=== PATIENT | male | born 1975 | race Caucasian/White ===

== ENCOUNTER 2016-08-17 15:59 | Emergency (ER) | payer BC ==
[2016-08-17 16:20] VITALS: RESP 18
[2016-08-17] MEDS ORDERED: ACETAMINOPHEN TAB 500 MG TAB PO STA (18:14)
[2016-08-17] MEDS ORDERED: ONDANSETRON 4 MG/2 ML VIAL IVP STA (18:14)
[2016-08-17] MEDS ORDERED: SODIUM CHLORIDE 0.9% 1,000 ML IV STA (18:14)
--- NOTE | 2016-08-17 18:14 | ED ---
General Adult HPI - General Chief complaint: Nausea/Vomiting/Diarrhea Stated complaint: Vomiting Time Seen by Provider: 08/17/16 18:08 Source: patient, RN notes reviewed Mode of arrival: ambulatory Limitations: no limitations - History of Present Illness Initial comments: 40-year-old male presents emergency Department chief complaint of body aches fever and vomiting. Patient states he's been sick for the last 2 days. Patient states he feels nauseous and he has some phlegm and stomach acid production after he coughs. Patient states he does have low-grade fever. Patient states he had a little bit of achiness in the belly does not hurt to touch earlier today which concerned him. He denies any changes in bowel or bladder habits. Patient states she was concerned due to the symptoms without that he should be evaluated. Patient states that there is no other symptoms at this time. Patient denies any significant health history besides stomach ulcers. Patient denies any recent shortness of breath, chest pain, numbness or tingling, dysuria or hematuria, constipation or diarrhea, headaches or visual changes, or any other current symptoms. - Related Data Home Medications Medication Instructions Recorded Confirmed Acetaminophen-Codeine 300-30mg 1 tab PO BID PRN 08/17/16 08/17/16 [Tylenol #3] Atorvastatin [Lipitor] 40 mg PO DAILY 08/17/16 08/17/16 Fluticasone Nasal [place] [Flonase 1 spray EA NOSTRIL DAILY PRN 08/17/16 08/17/16 Nasal [place]] Icy Hot Rub 1 applic TOPICAL DAILY PRN 08/17/16 08/17/16 Naproxen 500 mg PO Q12HR 08/17/16 08/17/16 Omeprazole 20 mg PO DAILY 08/17/16 08/17/16 Sertraline [Zoloft] 50 mg PO DAILY 08/17/16 08/17/16 Previous Rx's Medication Instructions Recorded Famotidine [Pepcid] 20 mg PO BID #10 tablet 08/17/16 Ondansetron Odt [Zofran ODT] 4 mg PO Q8HR PRN #20 tab 08/17/16 Allergies Allergy/AdvReac Type Severity Reaction Status Date / Time No Known Allergies Allergy Verified 08/17/16 18:45 Review of Systems ROS Statement: Those systems with pertinent positive or pertinent negative responses have been documented in the HPI. ROS Other: All systems not noted in ROS Statement are negative. Past Medical History Additional Past Medical History / Comment(s): gastric ulcers History of Any Multi-Drug Resistant Organisms: None Reported Past Surgical History: Back Surgery Past Psychological History: Anxiety, Depression Smoking Status: Former smoker Past Alcohol Use History: None Reported Past Drug Use History: Marijuana General Exam - General Exam Comments Initial Comments: General: The patient is awake and alert, in no distress, and does not appear acutely ill. Eye: Pupils are equal, round and reactive to light, extra-ocular movements are intact; there is normal conjunctiva bilaterally. No signs of icterus. Ears, nose, mouth and throat: There are moist mucous membranes. Neck: The neck is supple, there is no tenderness. Cardiovascular: There is a regular rate and rhythm. No murmur, rub or gallop is appreciated. Respiratory: Lungs are clear to auscultation, respirations are non-labored, breath sounds are equal. No wheezes, stridor, rales, or rhonchi. Gastrointestinal: Soft, non-distended, non-tender abdomen without masses or organomegaly noted. There is no rebound or guarding present. No CVA tenderness. Bowel sounds are unremarkable. Back: There is no tenderness to palpation in the midline. There is no obvious deformity. No rashes noted. Musculoskeletal: Normal ROM, no tenderness, There is no pedal edema. There is no calf tenderness or swelling. Sensation intact. Pulses equal bilaterally 2+. Neurological: CN II-XII intact, There are no obvious motor or sensory deficits. Coordination appears grossly intact. Speech is normal. Skin: Skin is warm and dry and no rashes or lesions are noted. Psychiatric: Cooperative, appropriate mood & affect, normal judgment. Limitations: no limitations Course Vital Signs 08/17/16 08/17/16 16:17 18:10 Temperature 99.2 F 99.2 F Pulse Rate 82 98 Respiratory 18 18 Rate Blood Pressure 151/91 159/78 O2 Sat by Pulse 93 L 95 Oximetry Medical Decision Making - Medical Decision Making 40-year-old male presents for fever and bodyaches. Patient does have nausea with this as well. Abdomen is soft and nontender. Patient at this time is positive for influenza A. Laboratory is reviewed and otherwise unremarkable. This time we discussed Motrin Tylenol for fever control. We discussed return parameters and follow-up. He is out of the window for treatment. Did discuss we will give him Zofran for his nausea. We discussed to use Motrin Tylenol for fever control. The patient stated that he understood and all questions have been answered. Patient will be discharged. Patient is feeling better in the room. - Lab Data Result diagrams: 08/17/16 18:25 08/17/16 18:25 Lab Results 08/17/16 08/17/16 08/17/16 Range/Units 18:25 18:25 18:25 WBC 6.3 (3.8-10.6) k/uL RBC 4.95 (4.30-5.90) m/uL Hgb 14.7 (13.0-17.5) gm/dL Hct 43.6 (39.0-53.0) % MCV 88.0 (80.0-100.0) fL MCH 29.7 (25.0-35.0) pg MCHC 33.7 (31.0-37.0) g/dL RDW 13.3 (11.5-15.5) % Plt Count 263 (150-450) k/uL Neutrophils % 69 % Lymphocytes % 15 % Monocytes % 13 % Eosinophils % 0 % Basophils % 1 % Neutrophils # 4.4 (1.3-7.7) k/uL Lymphocytes # 0.9 L (1.0-4.8) k/uL Monocytes # 0.8 (0-1.0) k/uL Eosinophils # 0.0 (0-0.7) k/uL Basophils # 0.0 (0-0.2) k/uL Sodium 140 (137-145) mmol/L Potassium 4.0 (3.5-5.1) mmol/L Chloride 99 (98-107) mmol/L Carbon Dioxide 26 (22-30) mmol/L Anion Gap 15 mmol/L BUN 21 H (9-20) mg/dL Creatinine 0.83 (0.66-1.25) mg/dL Est GFR (MDRD) Af Amer >60 (>60 ml/min/1.73 sqM) Est GFR (MDRD) Non-Af >60 (>60 ml/min/1.73 sqM) Glucose 101 H (74-99) mg/dL Calcium 9.1 (8.4-10.2) mg/dL Total Bilirubin 1.4 H (0.2-1.3) mg/dL AST 46 (17-59) U/L ALT 61 (21-72) U/L Alkaline Phosphatase 64 (38-126) U/L Total Protein 8.7 H (6.3-8.2) g/dL Albumin 4.8 (3.5-5.0) g/dL Amylase <30 L (30-110) U/L Lipase 39 (23-300) U/L Urine Color Urine Appearance (Clear) Urine pH (5.0-8.0) Ur Specific [place] (1.001-1.035) Urine Protein (Negative) Urine Glucose (UA) (Negative) Urine Ketones (Negative) Urine Blood (Negative) Urine Nitrate (Negative) Urine Bilirubin (Negative) Urine Urobilinogen (<2.0) mg/dL Ur Leukocyte Esterase (Negative) Influenza Type A RNA Detected A (Not Detectd) Influenza Type B (PCR) Not Detected (Not Detectd) 08/17/16 Range/Units 18:25 WBC (3.8-10.6) k/uL RBC (4.30-5.90) m/uL Hgb (13.0-17.5) gm/dL Hct (39.0-53.0) % MCV (80.0-100.0) fL MCH (25.0-35.0) pg MCHC (31.0-37.0) g/dL RDW (11.5-15.5) % Plt Count (150-450) k/uL Neutrophils % % Lymphocytes % % Monocytes % % Eosinophils % % Basophils % % Neutrophils # (1.3-7.7) k/uL Lymphocytes # (1.0-4.8) k/uL Monocytes # (0-1.0) k/uL Eosinophils # (0-0.7) k/uL Basophils # (0-0.2) k/uL Sodium (137-145) mmol/L Potassium (3.5-5.1) mmol/L Chloride (98-107) mmol/L Carbon Dioxide (22-30) mmol/L Anion Gap mmol/L BUN (9-20) mg/dL Creatinine (0.66-1.25) mg/dL Est GFR (MDRD) Af Amer (>60 ml/min/1.73 sqM) Est GFR (MDRD) Non-Af (>60 ml/min/1.73 sqM) Glucose (74-99) mg/dL Calcium (8.4-10.2) mg/dL Total Bilirubin (0.2-1.3) mg/dL AST (17-59) U/L ALT (21-72) U/L Alkaline Phosphatase (38-126) U/L Total Protein (6.3-8.2) g/dL Albumin (3.5-5.0) g/dL Amylase (30-110) U/L Lipase (23-300) U/L Urine Color Yellow Urine Appearance Clear (Clear) Urine pH 5.5 (5.0-8.0) Ur Specific [place] 1.024 (1.001-1.035) Urine Protein Trace H (Negative) Urine Glucose (UA) Negative (Negative) Urine Ketones 1+ H (Negative) Urine Blood Negative (Negative) Urine Nitrate Negative (Negative) Urine Bilirubin Negative (Negative) Urine Urobilinogen 2.0 (<2.0) mg/dL Ur Leukocyte Esterase Negative (Negative) Influenza Type A RNA (Not Detectd) Influenza Type B (PCR) (Not Detectd) - Radiology Data Radiology results: report reviewed, image reviewed Disposition Clinical Impression: Influenza A Disposition: HOME SELF-CARE Condition: Stable Instructions: Influenza (ED) Additional Instructions: Please use medication as discussed. Please follow up with family doctor if symptoms have not improved over the next two days. Please return to the emergency room if your symptoms increase or worsen or for any other concerns. Prescriptions: Famotidine [Pepcid] 20 mg PO BID #10 tablet Ondansetron Odt [Zofran ODT] 4 mg PO Q8HR PRN #20 tab PRN Reason: Nausea Referrals: Maurisio Stark MD [Primary Care Provider] - 1-2 days Time of Disposition: 19:21
[2016-08-17] MEDS ORDERED: PANTOPRAZOLE 40 MG/10 ML VIAL IVP STA (18:15)
[2016-08-17 18:53] LABS: Appearance,Urine Clear (Clear); Bilirubin,Urine Negative (Negative); Glucose,Urine (UA) Negative (Negative); Ketones,Urine 1+ (Negative); Leukocyte Esterase,Urine Negative (Negative); Nitrite,Urine Negative (Negative); PH, Urine 5.5 (5.0-8.0); Protein,Urine Trace (Negative); Specific Gravity,Urine 1.024 (1.001-1.035); UA Billing (MACRO vs. MICRO) CHEM
--- NOTE | 2016-08-17 18:54 | XR ---
EXAMINATION TYPE: XR chest 2V DATE OF EXAM: 08/17/2016 6:51 PM COMPARISON: 07/20/2013 HISTORY: Cough and fever TECHNIQUE: Frontal and lateral views of the chest are obtained. FINDINGS: Heart and mediastinum are normal. Lungs are clear. Diaphragm is normal. Bony thorax and so ft tissues appear normal. IMPRESSION: Normal chest. No change.
[2016-08-17 18:55] LABS: Basophils % (A) 1 %; CH 30.1; CHCM 34.4; Eosinophils % (A) 0 %; HCT 43.6 % (39.0-53.0); HDW 2.51; HGB 14.7 gm/dL (13.0-17.5); Luc # (Auto) 0.15; Luc % (Auto) 2; Lymphocytes # (A) 0.9 k/uL (1.0-4.8); Lymphocytes % (A) 15 %; MCH 29.7 pg (25.0-35.0); MCHC 33.7 g/dL (31.0-37.0); Mean Platelet Volume 7.7; Monocytes # (A) 0.8 k/uL (0-1.0); Monocytes % (A) 13 %; Neutrophils # (A) 4.4 k/uL (1.3-7.7); Neutrophils % (A) 69 %; RBC 4.95 m/uL (4.30-5.90); RDW 13.3 % (11.5-15.5); WBC 6.3 k/uL (3.8-10.6); WBC (Perox) 6.25
[2016-08-17 19:03] LABS: ALT 61 U/L (21-72); AST 46 U/L (17-59); Alkaline Phosphatase 64 U/L (38-126); Amylase <30 U/L (30-110); Anion Gap 15 mmol/L; Blood Urea Nitrogen 21 mg/dL (9-20); Calcium 9.1 mg/dL (8.4-10.2); Carbon Dioxide 26 mmol/L (22-30); Chloride 99 mmol/L (98-107); Glucose 101 mg/dL (74-99); Non-African American GFR(MDRD) >60 (>60 ml/min/1.73 sqM); Sodium 140 mmol/L (137-145); Total Bilirubin 1.4 mg/dL (0.2-1.3); Total Protein 8.7 g/dL (6.3-8.2)
[2016-08-17 19:58] VITALS: BP 133/66; PULSE 87; TEMP 99.9
== END 2016-08-17 20:30 | disposition home or self-care (01) ==
LOC: EC 15:59
DX: J10.1 Influenza due to other identified influenza virus with other respiratory manifestations (principal); F32.9 Major depressive disorder, single episode, unspecified; F41.9 Anxiety disorder, unspecified; Z79.1 Long term (current) use of non-steroidal anti-inflammatories (NSAID); Z79.899 Other long term (current) drug therapy; Z87.11 Personal history of peptic ulcer disease; Z87.891 Personal history of nicotine dependence
CPT/HCPCS: 36415; 80053; 82150; 83690; 85025; 81003; 87040; 87502; 71020; 99284; 96374; 96375; 96361 ×2; J2405; C9113

== ENCOUNTER 2016-08-19 06:30 | Emergency (ER) | payer BC ==
[2016-08-19] MEDS ORDERED: KETOROLAC 30 MG/ML 1 ML VIAL IVP STA (07:27)
[2016-08-19] MEDS ORDERED: ONDANSETRON 4 MG/2 ML VIAL IVP STA (07:27)
[2016-08-19] MEDS ORDERED: SODIUM CHLORIDE 0.9% 1,000 ML IV STA ×2 (07:27)
[2016-08-19] MEDS ORDERED: FAMOTIDINE 20 MG/2 ML VIAL IV STA (07:27)
--- NOTE | 2016-08-19 07:31 | ED ---
Nausea/Vomiting/Diarrhea HPI - General Chief complaint: Nausea/Vomiting/Diarrhea Stated complaint: fever Time Seen by Provider: 08/19/16 07:05 Source: patient, RN notes reviewed, old records reviewed Mode of arrival: ambulatory Limitations: no limitations - History of Present Illness Initial comments: This is a 40-year-old male who presents with the onset this morning of nausea and vomiting with some slight midepigastric pain. He states that he was seen here 2 days ago and diagnosed with influenza and started medications yesterday he states it actually 3 days was was symptoms started started out was not feeling well some nausea some vomiting diarrhea the next a candidate emergency Department was hydrated also diagnosed with influenza. He states that yesterday from most part he felt well but then 4 AM this morning he started having recurrent episodes of nausea and vomiting associated with his diarrhea. He feels lightheaded he does have a headache his temperatures been is 99.4-99.8 range. MD complaint: nausea, vomiting, diarrhea, other - Related Data Home Medications Medication Instructions Recorded Confirmed Acetaminophen-Codeine 300-30mg 1 tab PO BID PRN 08/17/16 08/19/16 [Tylenol #3] Atorvastatin [Lipitor] 40 mg PO HS 08/17/16 08/19/16 Fluticasone Nasal [place] [Flonase 1 spray EA NOSTRIL DAILY PRN 08/17/16 08/19/16 Nasal [place]] Icy Hot Rub 1 applic TOPICAL DAILY PRN 08/17/16 08/19/16 Naproxen 500 mg PO Q12HR 08/17/16 08/19/16 Omeprazole 20 mg PO HS 08/17/16 08/19/16 Sertraline HCl [Sertraline HCl] 25 mg PO HS 08/19/16 08/19/16 Previous Rx's Medication Instructions Recorded Famotidine [Pepcid] 20 mg PO BID #10 tablet 08/17/16 Ondansetron Odt [Zofran ODT] 4 mg PO Q8HR PRN #20 tab 08/17/16 Dicyclomine HCl [Bentyl] 20 mg PO QID #10 tab 08/19/16 Allergies Allergy/AdvReac Type Severity Reaction Status Date / Time No Known Allergies Allergy Verified 08/19/16 06:36 Review of Systems ROS Statement: Those systems with pertinent positive or pertinent negative responses have been documented in the HPI. ROS Other: All systems not noted in ROS Statement are negative. Past Medical History Past Medical History: Hyperlipidemia Additional Past Medical History / Comment(s): gastric ulcers , back problems History of Any Multi-Drug Resistant Organisms: None Reported Past Surgical History: Back Surgery Past Psychological History: Anxiety, Depression Smoking Status: Former smoker Past Alcohol Use History: None Reported Past Drug Use History: Marijuana General Exam - General Exam Comments Initial Comments: This is a well-developed well-nourished awake alert oriented history male he is nauseated at this time Limitations: no limitations General appearance: alert, in no apparent distress Head exam: Present: atraumatic, normocephalic, normal inspection Eye exam: Present: normal appearance, PERRL, EOMI. Absent: scleral icterus, conjunctival injection, periorbital swelling ENT exam: Present: mucous membranes dry Neck exam: Present: normal inspection. Absent: tenderness, meningismus, lymphadenopathy Respiratory exam: Present: normal lung sounds bilaterally. Absent: respiratory distress, wheezes, rales, rhonchi, stridor Cardiovascular Exam: Present: regular rate, normal rhythm, normal heart sounds. Absent: systolic murmur, diastolic murmur, rubs, gallop, clicks GI/Abdominal exam: Present: soft, tenderness (Very mild epigastric discomfort palpation no guarding no rebound no masses no bruits), normal bowel sounds. Absent: distended, guarding, rebound, rigid, mass, bruit, pulsatile mass, hernia Extremities exam: Present: normal inspection, full ROM, normal capillary refill. Absent: tenderness, pedal edema, joint swelling, calf tenderness Back exam: Present: normal inspection Neurological exam: Present: alert, oriented X3, CN II-XII intact Psychiatric exam: Present: normal affect, normal mood Skin exam: Present: warm, dry, intact, normal color. Absent: rash Course Vital Signs 08/19/16 06:34 Temperature 98.5 F Pulse Rate 90 Respiratory 18 Rate Blood Pressure 148/95 O2 Sat by Pulse 99 Oximetry Medical Decision Making - Medical Decision Making Patient initially much improved I did discuss findings with them he will be discharged to continue with current medications Bentyl will be added is increase his oral fluids follow-up with his doctor return when necessary he will be given a note for being off work today - Lab Data Result diagrams: 08/19/16 08:00 08/19/16 08:00 Lab Results 08/19/16 08/19/16 Range/Units 08:00 08:00 WBC 7.4 (3.8-10.6) k/uL RBC 4.88 (4.30-5.90) m/uL Hgb 14.5 (13.0-17.5) gm/dL Hct 42.4 (39.0-53.0) % MCV 86.7 (80.0-100.0) fL MCH 29.7 (25.0-35.0) pg MCHC 34.2 (31.0-37.0) g/dL RDW 13.1 (11.5-15.5) % Plt Count 283 (150-450) k/uL Neutrophils % 71 % Lymphocytes % 15 % Monocytes % 11 % Eosinophils % 1 % Basophils % 1 % Neutrophils # 5.3 (1.3-7.7) k/uL Lymphocytes # 1.1 (1.0-4.8) k/uL Monocytes # 0.8 (0-1.0) k/uL Eosinophils # 0.1 (0-0.7) k/uL Basophils # 0.1 (0-0.2) k/uL Sodium 142 (137-145) mmol/L Potassium 3.7 (3.5-5.1) mmol/L Chloride 102 (98-107) mmol/L Carbon Dioxide 27 (22-30) mmol/L Anion Gap 13 mmol/L BUN 20 (9-20) mg/dL Creatinine 0.89 (0.66-1.25) mg/dL Est GFR (MDRD) Af Amer >60 (>60 ml/min/1.73 sqM) Est GFR (MDRD) Non-Af >60 (>60 ml/min/1.73 sqM) Glucose 119 H (74-99) mg/dL Calcium 8.9 (8.4-10.2) mg/dL Total Bilirubin 1.2 (0.2-1.3) mg/dL AST 45 (17-59) U/L ALT 70 (21-72) U/L Alkaline Phosphatase 68 (38-126) U/L Total Protein 8.2 (6.3-8.2) g/dL Albumin 4.5 (3.5-5.0) g/dL Amylase <30 L (30-110) U/L Lipase 49 (23-300) U/L Disposition Clinical Impression: Dehydration, Gastroenteritis Disposition: HOME SELF-CARE Condition: Good Instructions: Acute Nausea and Vomiting (ED), Acute Diarrhea (ED), Dehydration (ED) Prescriptions: Dicyclomine HCl [Bentyl] 20 mg PO QID #10 tab
[2016-08-19 08:15] LABS: Basophils # (A) 0.1 k/uL (0-0.2); Basophils % (A) 1 %; CH 30.3; CHCM 35.1; Eosinophils # (A) 0.1 k/uL (0-0.7); Eosinophils % (A) 1 %; HCT 42.4 % (39.0-53.0); HDW 2.65; HGB 14.5 gm/dL (13.0-17.5); Luc # (Auto) 0.14; Luc % (Auto) 2; Lymphocytes # (A) 1.1 k/uL (1.0-4.8); Lymphocytes % (A) 15 %; MCH 29.7 pg (25.0-35.0); MCHC 34.2 g/dL (31.0-37.0); MCV 86.7 fL (80.0-100.0); Mean Platelet Volume 7.4; Monocytes # (A) 0.8 k/uL (0-1.0); Monocytes % (A) 11 %; Neutrophils # (A) 5.3 k/uL (1.3-7.7); Neutrophils % (A) 71 %; RBC 4.88 m/uL (4.30-5.90); RDW 13.1 % (11.5-15.5); WBC 7.4 k/uL (3.8-10.6); WBC (Perox) 7.36
[2016-08-19 08:33] LABS: ALT 70 U/L (21-72); AST 45 U/L (17-59); Alkaline Phosphatase 68 U/L (38-126); Amylase <30 U/L (30-110); Anion Gap 13 mmol/L; Blood Urea Nitrogen 20 mg/dL (9-20); Calcium 8.9 mg/dL (8.4-10.2); Carbon Dioxide 27 mmol/L (22-30); Chloride 102 mmol/L (98-107); Glucose 119 mg/dL (74-99); Non-African American GFR(MDRD) >60 (>60 ml/min/1.73 sqM); Potassium 3.7 mmol/L (3.5-5.1); Sodium 142 mmol/L (137-145); Total Bilirubin 1.2 mg/dL (0.2-1.3); Total Protein 8.2 g/dL (6.3-8.2)
[2016-08-19 09:49] VITALS: BP 139/78; PULSE 75; RESP 20; TEMP 98.6
== END 2016-08-19 09:48 | disposition home or self-care (01) ==
LOC: EC 06:30
DX: E86.0 Dehydration (principal); K52.9 Noninfective gastroenteritis and colitis, unspecified; R51 Headache; F41.9 Anxiety disorder, unspecified; E78.5 Hyperlipidemia, unspecified; F32.9 Major depressive disorder, single episode, unspecified; K25.9 Gastric ulcer, unspecified as acute or chronic, without hemorrhage or perforation; Z79.899 Other long term (current) drug therapy; Z87.891 Personal history of nicotine dependence
CPT/HCPCS: 36415; 80053; 82150; 83690; 85025; 96374; 96375 ×2; 96361; 99284; J2405; J1885

== ENCOUNTER 2022-06-25 23:26 | Emergency (ER) | payer BC ==
[2022-06-26 00:25] VITALS: BP 143/92; PULSE 89; RESP 16; TEMP 98.2
--- NOTE | 2022-06-26 01:26 | XR ---
EXAMINATION TYPE: XR chest 2V DATE OF EXAM: 06/26/2022 COMPARISON: 08/17/2016 HISTORY: Cough TECHNIQUE: 2 views FINDINGS: Heart and mediastinum are normal. Lungs are clear. Diaphragm is normal. Bony thorax is inta ct. IMPRESSION: Normal chest. No change.
[2022-06-26] MEDS ORDERED: IBUPROFEN 400 MG TAB PO STA (01:50)
--- NOTE | 2022-06-26 01:52 | ED ---
URI HPI - General Chief Complaint: Upper Respiratory Infection Stated Complaint: ENT, fever Time Seen by Provider: 06/26/22 01:42 Source: patient, RN notes reviewed Mode of arrival: ambulatory Limitations: no limitations - History of Present Illness Initial Comments: This is a pleasant 46-year-old male who presents to our as well with body aches, shaking chills, subjective fever, nasal congestion. Patient initially believed he had a sinus infection because he gets these frequently with similar symptoms. no changes in vision or hearing, no sore throat or difficulty with speech, no neck pain, no chest pain or shortness of breath, no abdominal pain, no nausea or vomiting, no changes in urination or bowel movements, no numbness or tingling, no extremity pain, no skin rashes or lesions. Past medical, surgical, social, and family history reviewed. MD Complaint: fever, cough, nasal congestion Onset/Timin -: days(s) - Related Data Home Medications Medication Instructions Recorded Confirmed Acetaminophen-Codeine 300-30mg 1 tab PO BID PRN 08/17/16 08/19/16 [Tylenol #3] Atorvastatin [Lipitor] 40 mg PO HS 08/17/16 08/19/16 Fluticasone Nasal [place] [Flonase 1 spray EA NOSTRIL DAILY PRN 08/17/16 08/19/16 Nasal [place]] Icy Hot Rub 1 applic TOPICAL DAILY PRN 08/17/16 08/19/16 Naproxen 500 mg PO Q12HR 08/17/16 08/19/16 Omeprazole 20 mg PO HS 08/17/16 08/19/16 Sertraline HCl 25 mg PO HS 08/19/16 08/19/16 Previous Rx's Medication Instructions Recorded Famotidine [Pepcid] 20 mg PO BID #10 tablet 08/17/16 Ondansetron Odt [Zofran ODT] 4 mg PO Q8HR PRN #20 tab 08/17/16 Dicyclomine HCl [Bentyl] 20 mg PO QID #10 tab 08/19/16 Allergies Allergy/AdvReac Type Severity Reaction Status Date / Time No Known Allergies Allergy Verified 06/26/22 00:24 Review of Systems ROS Statement: Those systems with pertinent positive or pertinent negative responses have been documented in the HPI. ROS Other: All systems not noted in ROS Statement are negative. Past Medical History Past Medical History: Hyperlipidemia Additional Past Medical History / Comment(s): gastric ulcers , back problems History of Any Multi-Drug Resistant Organisms: None Reported Past Surgical History: Back Surgery Past Psychological History: Anxiety, Depression Smoking Status: Never smoker Past Alcohol Use History: None Reported Past Drug Use History: Marijuana General Exam - General Exam Comments Initial Comments: Patient appears very mildly ill but not toxic. Vital signs stable. Adequate peripheral perfusion. Capillary refill less than 2 seconds. No mottling. Cranial nerves II through XII grossly intact Limitations: no limitations General appearance: alert, in no apparent distress Head exam: Present: atraumatic, normocephalic, normal inspection Eye exam: Present: normal appearance, PERRL, EOMI. Absent: scleral icterus, conjunctival injection, periorbital swelling ENT exam: Present: normal exam, normal oropharynx, mucous membranes moist, TM's normal bilaterally, normal external ear exam, other (Clear nasal discharge, no sinus tenderness). Absent: mucous membranes dry Neck exam: Present: normal inspection, full ROM. Absent: tenderness, meningismus, lymphadenopathy Respiratory exam: Present: normal lung sounds bilaterally. Absent: respiratory distress, wheezes, rales, rhonchi, stridor, chest wall tenderness, accessory muscle use, decreased breath sounds, prolonged expiratory Cardiovascular Exam: Present: regular rate, normal rhythm, normal heart sounds. Absent: systolic murmur, diastolic murmur, rubs, gallop, clicks GI/Abdominal exam: Present: soft, normal bowel sounds. Absent: distended, tenderness, guarding, rebound, rigid Extremities exam: Present: normal inspection, full ROM, normal capillary refill. Absent: tenderness, pedal edema, joint swelling, calf tenderness Back exam: Present: normal inspection Neurological exam: Present: alert, oriented X3, CN II-XII intact Psychiatric exam: Present: normal affect, normal mood Skin exam: Present: warm, dry, intact, normal color. Absent: rash Course Vital Signs 06/26/22 00:20 Temperature 98.2 F Pulse Rate 89 Respiratory 16 Rate Blood Pressure 143/92 O2 Sat by Pulse 95 Oximetry Medical Decision Making - Medical Decision Making Patient presents after testing positive in triage for influenza A. Patient symptomology consistent with influenza A. Does not appear to have any evidence of secondary bacterial infection. No respiratory distress. No evidence of purulent sinus drainage. Patient outside of the 48-hour window for Tamiflu. Discussed conservative measures in detail with the patient. Patient was told to return to the ER for any signs or symptoms worsen. Told to return immediately if any other problems arise. All questions answered. Treatment plan discussed. Patient in agreement Every effort has been made to ensure accuracy of this dictation. However, due to the limitations of electronic medical records and dictation devices, errors in charting still occur. Pt. voices understanding. The case was discussed in detail with ED attending physician. Presentation, findings, treatment plan discussed in detail. [employer] Dr. Walsh - Lab Data Lab Results 06/26/22 06/26/22 Range/Units 00:27 00:27 Coronavirus (PCR) Not Detected (Not Detectd) Influenza Type A RNA Detected H (Not Detectd) Influenza Type B (PCR) Not Detected (Not Detectd) Disposition Clinical Impression: Influenza A Disposition: HOME SELF-CARE Condition: Stable Instructions (If sedation given, give patient instructions): Influenza (ED) Additional Instructions: Alternate acetaminophen and ibuprofen for fever control. Drink plenty of clear liquids and ensure you stay hydrated. Follow-up with your regular physician as directed. Return to the ER immediately if any symptoms worsen, new symptoms arise, or any other problems develop. Is patient prescribed a controlled substance at d/c from ED?: No Referrals: [facility],Clinic [Primary Care Provider] - 07/01/22 Time of Disposition: 01:51
== END 2022-06-26 02:58 | disposition home or self-care (01) ==
LOC: EC 23:26
DX: J10.1 Influenza due to other identified influenza virus with other respiratory manifestations (principal); E78.5 Hyperlipidemia, unspecified; F41.9 Anxiety disorder, unspecified; F32.A Depression, unspecified; F12.90 Cannabis use, unspecified, uncomplicated; Z79.899 Other long term (current) drug therapy; Z20.822 Contact with and (suspected) exposure to COVID-19
CPT/HCPCS: 71046; 87502; 87635; 99283